=== PATIENT | male | born 1970 | race Hispanic/Latino ===

== ENCOUNTER 2021-06-21 18:32 | Inpatient (IN) | payer OTHER ==
[2021-06-21] MEDS ORDERED: MORPHINE 4 MG/1 ML INJ IV ONE ×2 (21:17→22:13)
[2021-06-21] MEDS ORDERED: NITROGLYCERIN 0.4 MG TAB SUBL SL ONE (21:17)
[2021-06-21] MEDS ORDERED: ASPIRIN 325 MG TAB PO ONE (21:17)
--- NOTE | 2021-06-21 21:18 | Emergency Department Report ---
ED Chest Pain HPI - General Chief Complaint: Chest Pain Stated Complaint: CHEST PAIN PUI?: No Time Seen by Provider: 06/21/21 21:06 Source: patient, RN notes reviewed Mode of arrival: Ambulatory Limitations: No Limitations - History of Present Illness Initial Comments: This patient is a pleasant and cooperative 51-year-old gentleman who currently lives in [place], but works here in [place], who travels back and forth between [place] and [place]. His past medical history includes ischemic heart disease with multiple stents, and hypertension. He takes aspirin, Brilinta, and Ranexa. He presents to the ER today with complaints of nontraumatic posterior shoulder blade pain, that radiates down his left upper extremity. He endorses moderate discomfort. He states "it feels just like my prior heart attack." Denies heada ronny, midline neck pain, abdominal pain, vomiting, diaphoresis. Denies leg pain or leg swelling. Reports multiple trips back and forth between [place] and [place]. Last cardiac catheterization was 2 years ago. Has not had a recent cardiac stress test. Reports compliance with his medications MD Complaint: chest pain -: Gradual, days(s) Onset: during rest Pain Location: other Pain Radiation: LUE Severity: moderate Severity scale (0 -10): 7 Quality: aching Consistency: intermittent Improves With: nothing Worsens With: nothing Treatments Prior to Arrival: aspirin Aspirin use within the Past 7 Days: (1) Yes - Related Data On Oral Contraceptives: No Home Medications Medication Instructions Recorded Confirmed Last Taken Aspirin [Claiborne Aspirin EC] 81 mg PO DAILY 06/22/21 06/22/21 1 Day Ago ~06/21/21 81 mg Escitalopram Oxalate [Lexapro] 20 mg PO DAILY 06/22/21 06/22/21 1 Day Ago ~06/21/21 20 mg Lipitor 80 mg PO DAILY 06/22/21 06/22/21 1 Day Ago ~06/21/21 80 mg Ranexa 500 mg PO BID 06/22/21 06/22/21 1 Day Ago ~06/21/21 500 Ticagrelor (Nf) [Brilinta (Nf)] 90 mg PO BID 06/22/21 06/22/21 1 Day Ago ~06/21/21 90 mg Valsartan [Diovan] 40 mg PO DAILY 06/22/21 06/22/21 1 Day Ago ~06/21/21 40 mg carvediloL [Coreg] 3.125 mg PO DAILY 06/22/21 06/22/21 1 Day Ago ~06/21/21 3.125 Allergies Allergy/AdvReac Type Severity Reaction Status Date / Time acetaminophen [From Percocet] Allergy Itching Verified 06/21/21 18:37 oxycodone [From Percocet] Allergy Itching Verified 06/21/21 18:37 Heart Score - HEART Score History: Moderately suspicious EKG: Non-specific Age: 45-65 Risk factors: > 3 risk factors or hx of atherosclerotic disease Troponin: < normal limit HEART Score: 5 - EKG Read Time Time EKG Completed: 18:43 EKG Read Time: 18:43 - Critical Actions Critical Actions: 4-6 pts:12-16.6% risk of adverse cardiac event. Should be admitted ED Review of Systems ROS: Stated complaint: CHEST PAIN Other details as noted in HPI Constitutional: denies: diaphoresis Eyes: denies: eye discharge ENT: denies: epistaxis Respiratory: denies: cough Cardiovascular: chest pain Gastrointestinal: denies: abdominal pain, vomiting Musculoskeletal: back pain Neurological: denies: weakness Hematological/Lymphatic: denies: easy bleeding ED Past Medical Hx - Past Medical History Hx Heart Attack/AMI: Yes (2020) Hx Diabetes: Yes (type 2) - Surgical History Hx Coronary Stent: Yes - Medications Home Medications: Home Medications Medication Instructions Recorded Confirmed Last Taken Type Aspirin [Claiborne Aspirin EC] 81 mg PO DAILY 06/22/21 06/22/21 1 Day Ago History ~06/21/21 81 mg Escitalopram Oxalate [Lexapro] 20 mg PO DAILY 06/22/21 06/22/21 1 Day Ago History ~06/21/21 20 mg Lipitor 80 mg PO DAILY 06/22/21 06/22/21 1 Day Ago History ~06/21/21 80 mg Ranexa 500 mg PO BID 06/22/21 06/22/21 1 Day Ago History ~06/21/21 500 Ticagrelor (Nf) [Brilinta (Nf)] 90 mg PO BID 06/22/21 06/22/21 1 Day Ago History ~06/21/21 90 mg Valsartan [Diovan] 40 mg PO DAILY 06/22/21 06/22/21 1 Day Ago History ~06/21/21 40 mg carvediloL [Coreg] 3.125 mg PO DAILY 06/22/21 06/22/21 1 Day Ago History ~06/21/21 3.125 ED Physical Exam - General Limitations: No Limitations General appearance: alert, in no apparent distress, obese - Head Head exam: Present: atraumatic, normocephalic - Eye Eye exam: Present: normal appearance, EOMI. Absent: nystagmus - ENT ENT exam: Present: normal exam, normal orophraynx, mucous membranes moist, normal external ear exam - Neck Neck exam: Present: normal inspection, full ROM. Absent: tenderness, me ningismus - Respiratory Respiratory exam: Present: normal lung sounds bilaterally. Absent: respiratory distress, wheezes, rales, rhonchi, stridor - Cardiovascular Cardiovascular Exam: Present: regular rate, normal rhythm, normal heart sounds. Absent: bradycardia, tachycardia, irregular rhythm, systolic murmur, diastolic murmur, rubs, gallop - GI/Abdominal GI/Abdominal exam: Present: soft. Absent: distended, tenderness, guarding, rebound, rigid, pulsatile mass - Rectal Rectal exam: Present: deferred - Extremities Exam Extremities exam: Present: normal inspection, full ROM, pedal edema (1+ edema in the bilateral lower extremity), other (2+ pulses noted in the bilateral upper and lower extremities. There is no palpable cord. negative Homans sign. Muscular compartments are soft. The pelvis is stable.). Absent: calf tenderness - Back Exam Back exam: Present: normal inspection. Absent: tenderness, CVA tenderness (R), CVA tenderness (L), paraspinal tenderness, vertebral tenderness - Neurological Exam Neurological exam: Present: alert, oriented X3, other (No facial droop. Tongue midline. Extraocular movements intact bilaterally. Facial sensation intact to light touch in V1, V2, V3 distribution bilaterally. 5 and a 5 strength in 4 extremities. Sensation intact to light touch in 4 extremities.). Absent: motor sensory deficit - Psychiatric Psychiatric exam: Present: normal affect, normal mood - Skin Skin exam: Present: warm, dry, intact, normal color. Absent: rash ED Course Vital Signs 06/21/21 06/21/21 06/21/21 18:36 20:55 21:00 Temperature 97.9 F Pulse Rate 107 H Respiratory 16 Rate Blood Pressure 133/86 Blood Pressure 142/85 [Left] O2 Sat by Pulse 98 94 96 Oximetry 06/21/21 06/21/21 06/21/21 21:16 21:30 21:46 Temperature Pulse Rate 95 H Respiratory Rate Blood Pressure 133/86 133/84 133/84 Blood Pressure [Left] O2 Sat by Pulse 96 95 96 Oximetry 06/21/21 06/21/21 06/21/21 22:00 22:16 22:30 Temperature Pulse Rate Respiratory Rate Blood Pressure 133/84 133/84 133/84 Blood Pressure [Left] O2 Sat by Pulse 95 95 96 Oximetry 06/21/21 06/21/21 06/21/21 22:46 23:00 23:08 Temperature Pulse Rate Respiratory Rate Blood Pressure 133/84 133/84 133/84 Blood Pressure [Left] O2 Sat by Pulse 95 96 95 Oximetry 06/21/21 06/21/21 06/21/21 23:10 23:20 23:30 Temperature Pulse Rate Respiratory Rate Blood Pressure 133/84 133/84 133/84 Blood Pressure [Left] O2 Sat by Pulse 94 94 95 Oximetry 06/21/21 06/21/21 06/22/21 23:40 23:50 00:00 Temperature Pulse Rate Respiratory Rate Blood Pressure 121/74 121/74 122/66 Blood Pressure [Left] O2 Sat by Pulse 96 95 95 Oximetry 06/22/21 00:26 Temperature Pulse Rate 72 Respiratory Rate Blood Pressure 93/46 Blood Pressure [Left] O2 Sat by Pulse 96 Oximetry - Reevaluation(s) Reevaluation #1: 06/21/21 21:39 Differential diagnosis, including but not limited to: GERD, gastritis, hiatal hernia, pneumonia, costochondritis, acute coronary syndrome, pulmonary embolism Assessment and plan: 51-year-old gentleman, with multiple trips back and forth between [facility] and [place], resolved tachycardia, who is not currently tachypneic or hypoxic, presenting to the ER today with symptoms concerning for atypical presentation of acute coronary syndrome. Place patient on youth nutritional monitor. Obtain appropriate laboratory studies, EKG, chest x-ray. Treat symptoms aggressively. Send D-dimer. Reassess after initi al data points. Have recommended admission to the medical service for a cardiac risk stratification, presuming no alternative diagnosis is elicited while here in the emergency room. The patient is agreeable to this plan of care. Reassess. 06/21/21 22:17 Laboratory studies reviewed and appreciated. Chest x-ray unremarkable. Troponin negative x1. Patient felt somewhat improved after nitroglycerin and morphine, but is still having some discomfort. He is requesting repeat dose of analgesia. Have reordered medication. D-dimer pending. Patient updated on laboratory studies and x-ray the chest. Case was discussed with the hospital physician who request call back once all diagnostics have resulted. 06/21/21 22:19 Dr Radha Post to admit to IMS he will follow up on the d dimer PATRICK score - Patrick Score Age > 65: (0) No Aspirin use within the Past 7 Days: (1) Yes 3 or more CAD Risk Factors: (1) Yes 2 or more Angina events in past 24 hrs: (1) Yes ST Deviation Greater than 0.5mm: (0) No ED Medical Decision Making - Lab Data Result diagrams: 06/22/21 05:09 06/22/21 05:09 Vital Signs 06/21/21 06/21/21 18:36 21:30 Temperature 97.9 F Pulse Rate 107 H 95 H Respiratory 16 Rate Blood Pressure 133/84 Blood Pressure 142/85 [Left] O2 Sat by Pulse 98 Oximetry Lab Results 06/21/21 06/21/21 Range/Units 21:34 21:34 WBC 8.8 (4.5-11.0) K/mm3 RBC 4.25 (3.65-5.03) M/mm3 Hgb 12.5 (11.8-15.2) gm/dl Hct 37.5 (35.5-45.6) % MCV 88 (84-94) fl MCH 29 (28-32) pg MCHC 33 (32-34) % RDW 15.7 H (13.2-15.2) % Plt Count 231 (140-440) K/mm3 Lymph % (Auto) 27.2 (13.4-35.0) % [place] % (Auto) 4.0 (0.0-7.3) % Eos % (Auto) 7.2 H (0.0-4.3) % Baso % (Auto) 0.6 (0.0-1.8) % Lymph # (Auto) 2.4 (1.2-5.4) K/mm3 [place] # (Auto) 0.4 (0.0-0.8) K/mm3 Eos # (Auto) 0.6 H (0.0-0.4) K/mm3 Baso # (Auto) 0.0 (0.0-0.1) K/mm3 Seg Neutrophils % 61.0 (40.0-70.0) % Seg Neutrophils # 5.4 (1.8-7.7) K/mm3 Sodium 137 (137-145) mmol/L Potassium 4.0 (3.6-5.0) mmol/L Chloride 103.7 (98-107) mmol/L Carbon Dioxide 21 L (22-30) mmol/L Anion Gap 16 mmol/L BUN 10 (9-20) mg/dL Creatinine 0.9 (0.8-1.3) mg/dL Estimated GFR > 60 ml/min BUN/Creatinine Ratio 11 % Glucose 206 H (75-100) mg/dL Calcium 8.6 (8.4-10.2) mg/dL Total Bilirubin 0.20 (0.1-1.2) mg/dL AST 14 (5-40) units/L ALT 12 (7-56) units/L Alkaline Phosphatase 120 (35-129) units/L Troponin T < 0.010 (0.00-0.029) ng/mL Total Protein 6.8 (6.3-8.2) g/dL Albumin 4.3 (3.9-5) g/dL Albumin/Globulin Ratio 1.7 % - EKG Data -: EKG Interpreted by N[facility] EKG shows normal: sinus rhythm Rate: normal - EKG Data When compared to previous EKG there are: previous EKG unavailable 06/21/21 21:39 EKG #1 is interpreted at 18: 43 Sinus rhythm, 99 bpm. Left axis deviation, left anterior fascicular block, left ventricular hypertrophy, normal P wave axis. Normal EKG. Not a STEMI. No prior for comparison. - Radiology Data Radiology results: pending, report reviewed, image reviewed CHEST 1 VIEW 06/21/2021 8:45 PM INDICATION / CLINICAL INFORMATION: Chest Pain. COMPARISON: None available. FINDINGS: SUPPORT DEVICES: None. HEART / MEDIASTINUM: No significant abnormality. LUNGS / PLEURA: No acute airspace disease. Mild bibasilar atelectasis. No pneumothorax. ADDITIONAL FINDINGS: Thoracic spine stimulating leads project over the mid to lower thoracic spine. IMPRESSION: 1. No acute findings. Signer Name: Virginia Cabrera MD Signed: 06/21/2021 8:50 PM Workstation Name: [id number] Critical Care Time: Yes Critical care time in (mins) excluding proc time.: 35 Critical care attestation.: If time is entered above; I have spent that time in minutes in the direct care of this critically ill patient, excluding procedure time. ED Disposition Clinical Impression: Acute chest pain Disposition: 09 ADMITTED INPATIENT Is pt being admited?: Yes Does the pt Need Aspirin: No Condition: Good
[2021-06-21 21:52] LABS: Basophils % (Auto) 0.6 % (0.0-1.8); Eosinophils # (Auto) 0.6 K/mm3 (0.0-0.4); Eosinophils % (Auto) 7.2 % (0.0-4.3); Hematocrit 37.5 % (35.5-45.6); Hemoglobin 12.5 gm/dl (11.8-15.2); Lymphocytes # (Auto) 2.4 K/mm3 (1.2-5.4); Lymphocytes % (Auto) 27.2 % (13.4-35.0); Mean Corpuscular HGB Conc 33 % (32-34); Mean Corpuscular Volume 88 fl (84-94); Monocytes # (Auto) 0.4 K/mm3 (0.0-0.8); Platelet Count 231 K/mm3 (140-440); Red Blood Count 4.25 M/mm3 (3.65-5.03); Red Cell Distribution Width 15.7 % (13.2-15.2)
--- NOTE | 2021-06-21 21:54 | XRay Report ---
CHEST 1 VIEW 06/21/2021 8:45 PM INDICATION / CLINICAL INFORMATION: Chest Pain. COMPARISON: None available. FINDINGS: SUPPORT DEVICES: None. HEART / MEDIASTINUM: No significant abnormality. LUNGS / PLEURA: No acute airspace disease. Mild bibasilar atelectasis. No pneumothorax. ADDITIONAL FINDINGS: Thoracic spine stimulating leads project over the mid to lower thoracic spine. IMPRESSION: 1. No acute findings. Signer Name: Virginia Cabrera MD Signed: 06/21/2021 9:50 PM Workstation Name: [id number]
[2021-06-21 22:08] LABS: Alanine Aminotransferase 12 units/L (7-56); Albumin 4.3 g/dL (3.9-5); BUN/Creatinine Ratio 11; Blood Urea Nitrogen 10 mg/dL (9-20); Calcium 8.6 mg/dL (8.4-10.2); Hemolysis Index 7
--- NOTE | 2021-06-21 22:20 | History and Physical Report ---
History of Present Illness Date of examination: 06/21/21 Date of admission: 06/21/2021 Chief complaint: Chest Pain History of present illness: 51-year-old male with known history of coronary artery disease with stent placement in the past, diabetes mellitus presenting to the emergency room today complaining of left shoulder pain. Patient lives in [place] and visiting [place] [id number]. Indicates that pain felt like when he had a heart attack requiring stent placement in the past. He denies any diaphoresis, no shortness of breath, no nausea vomiting, no headache or dizziness. There is no known relieving or exacerbating factor. Patient has been compliant with his medications which includes aspirin, Brilinta and Ranexa. Work-up in the emergency room today, chest x-ray shows no acute findings. Labs however shows elevated D-dimer of 1243. EKG shows no acute findings. Other labs are essentially unremarkable. Past History Past Medical History: acute MD, CAD, diabetes, hypertension Past Surgical History: PTCA Social history: no significant social history Family history: no significant family history Medications and Allergies Allergies Allergy/AdvReac Type Severity Reaction Status Date / Time acetaminophen [From Percocet] Allergy Itching Verified 06/21/21 18:37 oxycodone [From Percocet] Allergy Itching Verified 06/21/21 18:37 Review of Systems Constitutional: no fever, no chills Ears, nose, mouth and throat: no nasal congestion, no sore throat Cardiovascular: chest pain, no palpitations Respiratory: no cough, no shortness of breath Gastrointestinal: no abdominal pain, no nausea, no vomiting, no diarrhea Genitourinary Male: no dysuria, no hematuria, no nocturia Musculoskeletal: no neck pain, no low back pain Integumentary: no rash, no pruritis Neurological: no headaches, no confusion Psychiatric: no anxiety, no depression Endocrine: no polyphagia, no polydipsia, no polyuria, no nocturia Exam - Constitutional Vitals: Temp Pulse Resp BP Pulse Ox 97.9 F 95 H 16 133/84 98 06/21/21 18:36 06/21/21 21:30 06/21/21 18:36 06/21/21 21:30 06/21/21 18:36 General appearance: Present: no acute distress, well-nourished, obese - EENT Eyes: Present: PERRL, EOM intact. Absent: scleral icterus ENT: hearing intact, clear oral mucosa, dentition normal - Neck Neck: Present: supple, normal ROM - Respiratory Respiratory effort: normal Respiratory: bilateral: CTA - Cardiovascular Rhythm: regular Heart Sounds: Present: S1 & S2. Absent: systolic murmur, diastolic murmur, rub, click - Extremities Extremities: no ischemia, pulses intact, pulses symmetrical, No edema, normal temperature, normal color, Full ROM Peripheral Pulses: within normal limits - Abdominal General gastrointestinal: Present: soft, non-tender, non-distended, normal bowel sounds. Absent: mass - Integumentary Integumentary: Present: clear, warm, dry, normal turgor. Absent: rash - Musculoskeletal Musculoskeletal: strength equal bilaterally - Psychiatric Psychiatric: appropriate mood/affect, intact judgment & insight, memory intact, cooperative - Neurologic Neurologic: CNII-XII intact, no focal deficits, moves all extremities HEART Score - HEART Score History: Moderately suspicious EKG: Non-specific Age: 45-65 Risk factors: > 3 risk factors or hx of atherosclerotic disease Troponin: Troponin T < 0.010 ng/mL (0.00-0.029) 06/21/21 21:34 Troponin: < normal limit HEART Score: 5 - Critical Actions Critical Actions: 4-6 pts:12-16.6% risk of adverse cardiac event. Should be admitted Results - Labs CBC & Chem 7: 06/21/21 21:34 06/21/21 21:34 Labs: Abnormal lab results 06/21/21 06/21/21 Range/Units 21:34 21:34 RDW 15.7 H (13.2-15.2) % Eos % (Auto) 7.2 H (0.0-4.3) % Eos # (Auto) 0.6 H (0.0-0.4) K/mm3 Carbon Dioxide 21 L (22-30) mmol/L Glucose 206 H (75-100) mg/dL Assessment and Plan - Patient Problems (1) Acute chest pain Current Visit: Yes Status: Acute Plan to address problem: Patient admitted and placed on telemetry. We will check serial cardiac enzymes. Patient placed on daily aspirin, sublingual nitroglycerin and IV morphine as needed for chest pain. Consult placed to cardiology for evaluation. (2) CAD (coronary artery disease) Current Visit: Yes Status: Acute Plan to address problem: Patient has had stent placed in the past. Will await for cardiology evaluation and recommendations. (3) Diabetes mellitus Current Visit: Yes Status: Acute Plan to address problem: Placed on sliding scale insulin. Monitor Accu-Cheks closely. (4) Elevated d-dimer Current Visit: Yes Status: Acute Plan to address problem: We will check a CT angiogram of the chest to rule out pulmonary embolism. (5) DVT prophylaxis Current Visit: Yes Status: Acute Plan to address problem: Patient placed on subcutaneous heparin. (6) Full code status Current Visit: Yes Status: Acute Plan to address problem: Patient is full code.
[2021-06-21] MEDS ORDERED: traMADol 50 MG TAB PO PRN (22:23)
[2021-06-21] MEDS ORDERED: MORPHINE 4 MG/1 ML INJ IV PRN ×2 (22:23)
[2021-06-21] MEDS ORDERED: DEXTROSE 50% IN WATER (25GM) 50 ML SYRINGE IV PRN (22:23)
[2021-06-21] MEDS ORDERED: ONDANSETRON 4 MG/2 ML INJ IV PRN (22:23)
[2021-06-21] MEDS ORDERED: MAGNESIUM HYDROXIDE (MOM) ORAL LIQD UDC PO PRN (22:23)
[2021-06-21] MEDS ORDERED: ACETAMINOPHEN 325 MG TAB PO PRN ×2 (22:23)
[2021-06-22] MEDS: MORPHINE 2 MG/1 ML INJ IV PRN ×2 (02:07→11:29)
--- NOTE | 2021-06-22 02:07 | Cat Scan Report ---
CTA CHEST WITH CONTRAST INDICATION / CLINICAL INFORMATION: Chest pain, elevated D-dimer. possible P.E.. TECHNIQUE: Axial CT images were obtained through the chest after injection of 100 cc Omnipaque 350 IV contrast. 3 plane MIP and/or 3D reconstructions were produced. All CT scans at this location are per formed using CT dose reduction for ALARA by means of automated exposure control. COMPARISON: One view of the chest from 06/21/2021. FINDINGS: PULMONARY EMBOLUS: None. THORACIC AORTA: No significant abnormality. HEART: No significant abnormality. CORONARY ARTERY CALCIFICATION: Present -- Mild. Multiple previously placed coronary artery stents are noted. MEDIASTINUM / ALPHONSO: No significant abnormality. PLEURA: No pleural effusion. No pneumothorax. LUNGS: There is probable bilateral atelectasis. No suspicious area of consolidation. No suspicious no dule or mass. ADDITIONAL FINDINGS: None. UPPER ABDOMEN: No acute findings. SKELETAL STRUCTURES: No significant osseous abnormality. There is expected positioning of the thoraci c spine stimulating device. IMPRESSION: 1. No CT evidence for pulmonary embolism. 2. No acute findings. 3. Additional findings as above. Signer Name: William Dee MD Signed: 06/22/2021 2:03 AM Workstation Name: [id number]
[2021-06-22 05:55] LABS: Basophils % (Auto) 0.7 % (0.0-1.8); Eosinophils # (Auto) 0.4 K/mm3 (0.0-0.4); Eosinophils % (Auto) 6.4 % (0.0-4.3); Hematocrit 35.6 % (35.5-45.6); Hemoglobin 11.8 gm/dl (11.8-15.2); Lymphocytes # (Auto) 2.2 K/mm3 (1.2-5.4); Lymphocytes % (Auto) 38.9 % (13.4-35.0); Mean Corpuscular HGB Conc 33 % (32-34); Mean Corpuscular Volume 88 fl (84-94); Monocytes # (Auto) 0.2 K/mm3 (0.0-0.8); Monocytes % (Auto) 3.8 % (0.0-7.3); Platelet Count 216 K/mm3 (140-440); Red Blood Count 4.05 M/mm3 (3.65-5.03); Red Cell Distribution Width 15.8 % (13.2-15.2)
[2021-06-22] MEDS ORDERED: HEPARIN 5,000 UNIT/1 ML VIAL SUB-Q SCH (06:00)
[2021-06-22 06:13] LABS: Blood Urea Nitrogen 9 mg/dL (9-20); Calcium 8.2 mg/dL (8.4-10.2); Hemolysis Index 4
[2021-06-22 06:17] LABS: BUN/Creatinine Ratio 13
[2021-06-22] MEDS: INSULIN LISPRO 100 UNIT/ML SUB-Q SCH ×4 (07:53→22:02)
[2021-06-22] MEDS ORDERED: REGADENOSON 0.4 MG/5 ML INJ IV ONE (08:35)
[2021-06-22] MEDS ORDERED: ASPIRIN EC 325 MG TAB PO SCH (10:00)
--- NOTE | 2021-06-22 10:33 | Consultation ---
History of Present Illness Consult date: 06/22/21 Consult reason: chest pain History of present illness: Patient is a 51-year-old man who presented to the hospital with chest pain. He has a history of coronary artery disease, 2 years ago suffered a myocardial infarction and underwent coronary stenting while in [place]. 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 He is still compliant with dual antiplatelet therapy with baby aspirin and Brilinta. His current chest pain is located left upper chest, with radiation down his left arm and to his neck. His pain was nonexertional, but he states it was reminiscent of his prior angina 2 years ago. There is no shortness of breath, no palpitations, no edema or syncope. Work-up so far in the hospital, EKG is sinus rhythm with early repolarization J- point elevation, but no acute ischemia or infarction. Serial troponin levels were negative x3. Chest x-ray was normal-sized cardiac silhouette and clear lungs. Echocardiogram preliminary findings showed normal left ventricular systolic function with ejection fraction >55%. He underwent a Lexiscan thallium stress test today, the results pending. Past History Past Medical History: acute NC, CAD, diabetes, hypertension, other (Tobacco abuse, still smokes) Past Surgical History: PTCA Social history: no significant social history Family history: no significant family history Medications and Allergies Allergies Allergy/AdvReac Type Severity Reaction Status Date / Time acetaminophen [From Percocet] Allergy Itching Verified 06/21/21 18:37 oxycodone [From Percocet] Allergy Itching Verified 06/21/21 18:37 Home Medications Medication Instructions Recorded Confirmed Last Taken Type Aspirin [[place] Aspirin EC] 81 mg PO DAILY 06/22/21 06/22/21 1 Day Ago History ~06/21/21 81 mg Escitalopram Oxalate [Lexapro] 20 mg PO DAILY 06/22/21 06/22/21 1 Day Ago History ~06/21/21 20 mg Lipitor 80 mg PO DAILY 06/22/21 06/22/21 1 Day Ago History ~06/21/21 80 mg Ranexa 500 mg PO BID 06/22/21 06/22/21 1 Day Ago History ~06/21/21 500 Ticagrelor (Nf) [Brilinta (Nf)] 90 mg PO BID 06/22/21 06/22/21 1 Day Ago History ~06/21/21 90 mg Valsartan [Diovan] 40 mg PO DAILY 06/22/21 06/22/21 1 Day Ago History ~06/21/21 40 mg carvediloL [Coreg] 3.125 mg PO DAILY 06/22/21 06/22/21 1 Day Ago History ~06/21/21 3.125 Active Meds: Active Medications Acetaminophen (Acetaminophen 325 Mg Tab) 650 mg PO Q4H PRN PRN Reason: Pain MILD(1-3)/Fever >100.5/CANALES Aspirin (Aspirin Ec 325 Mg Tab) 325 mg PO QDAY ANNA Dextrose (Dextrose 50% In Water (25gm) 50 Ml Syringe) 50 ml IV Q30MIN PRN; Protocol PRN Reason: Hypoglycemia Heparin Sodium (Porcine) (Heparin 5,000 Unit/1 Ml Vial) 5,000 unit SUB-Q Q8HR [facility] Last Admin: 06/22/21 06:59 Dose: 5,000 unit Insulin Human Lispro (Insulin Lispro 100 Unit/Ml) 0 unit SUB-Q ACHS [facility]; Protocol Last Admin: 06/22/21 07:53 Dose: Not Given Magnesium Hydroxide (Magnesium Hydroxide (Mom) Oral Liqd Udc) 30 ml PO Q4H PRN PRN Reason: Constipation Morphine Sulfate (Morphine 2 Mg/1 Ml Inj) 2 mg IV Q4H PRN PRN Reason: Pain, Moderate (4-6) Last Admin: 06/22/21 02:07 Dose: 2 mg Morphine Sulfate (Morphine 4 Mg/1 Ml Inj) 4 mg IV Q4H PRN PRN Reason: Pain , Severe (7-10) Last Admin: 06/22/21 00:34 Dose: 4 mg Morphine Sulfate (Morphine 4 Mg/1 Ml Inj) 2 mg IV Q5MIN PRN PRN Reason: Chest Pain unrelieved by NTG Last Admin: 06/22/21 05:34 Dose: 2 mg Ondansetron HCl (Ondansetron 4 Mg/2 Ml Inj) 4 mg IV Q8H PRN PRN Reason: Nausea And Vomiting Sodium Chloride (Sodium Chloride 0.9% 10 Ml Flush Syringe) 10 ml IV BID ANNA Sodium Chloride (Sodium Chloride 0.9% 10 Ml Flush Syringe) 10 ml IV PRN PRN PRN Reason: LINE FLUSH Tramadol HCl (Tramadol 50 Mg Tab) 50 mg PO Q6H PRN PRN Reason: Pain, Moderate (4-6) Review of Systems Cardiovascular: chest pain, no orthopnea, no palpitations, no rapid/irregular heart beat, no edema, no syncope, no lightheadedness, no shortness of breath Physical Examination Vital Signs Temp Pulse Resp BP Pulse Ox 97.9 F 107 H 16 142/85 98 06/21/21 18:36 06/21/21 18:36 06/21/21 18:36 06/21/21 18:36 06/21/21 18:36 General appearance: no acute distress HEENT: Positive: PERRL Neck: Positive: neck supple Cardiac: Positive: Reg Rate and Rhythm Lungs: Positive: Decreased Breath Sounds Neuro: Positive: Grossly Intact Abdomen: Positive: Soft Male genitourinary: Positive: deferred Skin: Positive: Clear Extremities: Absent: edema Results 06/22/21 05:09 06/22/21 05:09 Cardiac Enzymes 06/21/21 Range/Units 21:34 AST 14 (5-40) units/L CBC 06/21/21 06/22/21 Range/Units 21:34 05:09 WBC 8.8 5.6 (4.5-11.0) K/mm3 RBC 4.25 4.05 (3.65-5.03) M/mm3 Hgb 12.5 11.8 (11.8-15.2) gm/dl Hct 37.5 35.6 (35.5-45.6) % Plt Count 231 216 (140-440) K/mm3 Lymph # (Auto) 2.4 2.2 (1.2-5.4) K/mm3 [place] # (Auto) 0.4 0.2 (0.0-0.8) K/mm3 Eos # (Auto) 0.6 H 0.4 (0.0-0.4) K/mm3 Baso # (Auto) 0.0 0.0 (0.0-0.1) K/mm3 Comprehensive Metabolic Panel 06/21/21 06/22/21 Range/Units 21:34 05:09 Sodium 137 140 (137-145) mmol/L Potassium 4.0 4.2 (3.6-5.0) mmol/L Chloride 103.7 104.8 (98-107) mmol/L Carbon Dioxide 21 L 24 (22-30) mmol/L BUN 10 9 (9-20) mg/dL Creatinine 0.9 0.7 L (0.8-1.3) mg/dL Glucose 206 H 97 (75-100) mg/dL Calcium 8.6 8.2 L (8.4-10.2) mg/dL AST 14 (5-40) units/L ALT 12 (7-56) units/L Alkaline Phosphatase 120 (35-129) units/L Total Protein 6.8 (6.3-8.2) g/dL Albumin 4.3 (3.9-5) g/dL EKG interpretations - Telemetry EKG Rhythm: Sinus Rhythm (With early repolarization J-point elevation, no acute ischemia or infarction) Assessment and Plan - Patient Problems (1) Chest pain Current Visit: Yes Status: Acute Plan to address problem: 51-year-old man with a history of coronary artery disease, myocardial infarction and stent implantation 2 years ago, compliant with medical therapy including dual oral antiplatelet therapy. He presents with atypical chest pain, but states that it is reminiscent of his prior angina. ECG, chest x-ray, troponin levels and echocardiogram showed benign findings. A Lexiscan thallium stress test has been completed, results are pending. Further management will depend on clinical course.
[2021-06-22] MEDS ORDERED: KETOROLAC 30 MG/1 ML INJ IV PRN (12:30)
[2021-06-22] MEDS ORDERED: NITROGLYCERIN 0.4 MG TAB SUBL SL PRN (13:00)
--- NOTE | 2021-06-22 13:45 | Nuclear Medicine Report ---
APPROVED REPORT Exam: Nuclear Stress Test Indication: Chest pain [facility] [place] [facility] Ht: 5 ft 11 in Wt: 289 lbs BSA: 2.47 m2 HR: 63 bpmBP: 117/78 mmHgBMI: 40.30 Rhythm: SINUS RHYTHM , CANNOT R/O INFERIOR INFARCT AGE INDETERMNED WITH POSTERIOR EXTENSION Stress Test Details Stress Test: Pharmacologic stress testing performed using 0.4 mg of regadenoson per 5 mL given IV over 10 seconds. Reason for pharmacologic stress test: physical limitation. HR Resting HR: 63 bpm Max HR Achieved: 80 bpm Max Heart Rate (APMHR): 168 bpm Target HR (85% APMHR): 142 bpm % of APMHR: 47 Recovery HR: 70 bpm BP Resting BP: 117/78 mmHg Max BP: 141/75 mmHg Recovery BP: 135/81 mmHg ECG Resting ECG: SINUS RHYTHM Stress ECG: Sinus Rhythm ST Change: None Arrhythmia: None Recovery ECG: Sinus Rhythm Recovery ST Change: None Recovery Arrhythmia: None Clinical Reason for Termination: Completed protocol Stress Symptoms: None Stress ECG Conclusion No chest pain, no ST changes of ischemia with pharmacologic stress, myocardial perfusion images are pending NM EXAM: Myocardial Perfusion REST/STRESS Imaging Protocol: Rest Tc-99m/Stress Tc-99m 1 day Resting Data Rest SPECT myocardial perfusion imaging was performed in supine position 45 minutes following the intravenous injection of 10 mCi of Tc-99m Myoview. Time of rest injection: 0740 Date: 06/22/2021 Pharmacologic Stress Pharmacologic stress test was performed by injecting Regadenoson 0.4 mg IV push followed by the intravenous injection of 28 mCi of Tc-99m Myoview. Time of stress injection: 09:55:45 Date: 06/22/2021 Gated Stress SPECT was performed 30 minutes after stress injection. The images were gated to evaluate regional wall motion and calculate left ventricular ejection fraction. Study Data TID = 1.15. Perfusion Wall Motion Well-preserved left ventricular systolic function, ejection fraction calculated 64%. Nuclear Conclusion ECG Findings: negative for ischemia Clinical Findings: negative for ischemia Nuclear Findings: positive for ischemia Left Ventricular Function: normal Risk Study: moderate Abnormal study with evidence of a prior inferior wall infarct with mild degree of lucero-infarct ischemia. Well-preserved left ventricular systolic function, ejection fraction 64%. Clinical correlation is recommended. Conclusion No chest pain, no ST changes of ischemia with pharmacologic stress, myocardial perfusion images are pending
--- NOTE | 2021-06-22 13:53 | Event Note ---
Date: 06/22/21 Lexiscan thallium stress test was abnormal, showed a moderate sized predominantly fixed inferior defect but with mild degree of reversible lucero- infarct ischemia. We will order a cardiac catheterization tomorrow morning, risks and benefits discussed with the patient who consents to proceed.
[2021-06-22] MEDS ORDERED: SODIUM CHLORIDE 0.9% 500 ML 500 ML IV SCH (14:00)
--- NOTE | 2021-06-22 14:29 | Progress Note ---
Hospitalist Physical - Constitutional Vitals: Temp Pulse Resp BP Pulse Ox 97.6 F 72 18 132/80 97 06/22/21 12:53 06/22/21 09:42 06/22/21 12:53 06/22/21 12:53 06/22/21 03:09 General appearance: Present: no acute distress HEART Score - HEART Score EKG: Non-specific Age: 45-65 Risk factors: > 3 risk factors or hx of atherosclerotic disease Troponin: Troponin T < 0.010 ng/mL (0.00-0.029) 06/22/21 05:09 Troponin: < normal limit - Critical Actions Critical Actions: 4-6 pts:12-16.6% risk of adverse cardiac event. Should be admitted Results - Labs CBC & Chem 7: 06/22/21 05:09 06/22/21 05:09 Labs: Laboratory Last Values WBC 5.6 K/mm3 (4.5-11.0) 06/22/21 05:09 RBC 4.05 M/mm3 (3.65-5.03) 06/22/21 05:09 Hgb 11.8 gm/dl (11.8-15.2) 06/22/21 05:09 Hct 35.6 % (35.5-45.6) 06/22/21 05:09 MCV 88 fl (84-94) 06/22/21 05:09 MCH 29 pg (28-32) 06/22/21 05:09 MCHC 33 % (32-34) 06/22/21 05:09 RDW 15.8 % (13.2-15.2) H 06/22/21 05:09 Plt Count 216 K/mm3 (140-440) 06/22/21 05:09 Lymph % (Auto) 38.9 % (13.4-35.0) H 06/22/21 05:09 [place] % (Auto) 3.8 % (0.0-7.3) 06/22/21 05:09 Eos % (Auto) 6.4 % (0.0-4.3) H 06/22/21 05:09 Baso % (Auto) 0.7 % (0.0-1.8) 06/22/21 05:09 Lymph # (Auto) 2.2 K/mm3 (1.2-5.4) 06/22/21 05:09 [place] # (Auto) 0.2 K/mm3 (0.0-0.8) 06/22/21 05:09 Eos # (Auto) 0.4 K/mm3 (0.0-0.4) 06/22/21 05:09 Baso # (Auto) 0.0 K/mm3 (0.0-0.1) 06/22/21 05:09 Seg Neutrophils % 50.2 % (40.0-70.0) 06/22/21 05:09 Seg Neutrophils # 2.8 K/mm3 (1.8-7.7) 06/22/21 05:09 D-Dimer 1243.27 ng/mlDDU (0-234) H 06/21/21 21:34 Sodium 140 mmol/L (137-145) 06/22/21 05:09 Potassium 4.2 mmol/L (3.6-5.0) 06/22/21 05:09 Chloride 104.8 mmol/L (98-107) 06/22/21 05:09 Carbon Dioxide 24 mmol/L (22-30) 06/22/21 05:09 Anion Gap 15 mmol/L 06/22/21 05:09 BUN 9 mg/dL (9-20) 06/22/21 05:09 Creatinine 0.7 mg/dL (0.8-1.3) L 06/22/21 05:09 Estimated GFR > 60 ml/min 06/22/21 05:09 BUN/Creatinine Ratio 13 % 06/22/21 05:09 Glucose 97 mg/dL (75-100) 06/22/21 05:09 POC Glucose 126 mg/dL (70-105) H 06/22/21 11:26 Calcium 8.2 mg/dL (8.4-10.2) L 06/22/21 05:09 Total Bilirubin 0.20 mg/dL (0.1-1.2) 06/21/21 21:34 AST 14 units/L (5-40) 06/21/21 21:34 ALT 12 units/L (7-56) 06/21/21 21:34 Alkaline Phosphatase 120 units/L (35-129) 06/21/21 21:34 Troponin T < 0.010 ng/mL (0.00-0.029) 06/22/21 05:09 Total Protein 6.8 g/dL (6.3-8.2) 06/21/21 21:34 Albumin 4.3 g/dL (3.9-5) 06/21/21 21:34 Albumin/Globulin Ratio 1.7 % 06/21/21 21:34 Jang/IV: Voiding Method Urinal Active Medications - Current Medications Current Medications: Generic Name Dose Route Start Last Admin Trade Name Freq PRN Reason Stop Dose Admin Acetaminophen 650 mg 06/21/21 22:23 Acetaminophen 325 Mg Tab PO Q4H PRN Pain MILD(1-3)/Fever >100.5/CANALES Aspirin 81 mg 06/23/21 10:00 Aspirin Ec 81 Mg Tab PO QDAY [facility] Atorvastatin Calcium 40 mg 06/22/21 22:00 Atorvastatin 40 Mg Tab PO QHS [facility] Carvedilol 6.25 mg 06/22/21 14:00 Carvedilol 6.25 Mg Tab PO BID [facility] Dextrose 50 ml 06/21/21 22:23 Dextrose 50% In Water (25gm) 50 Ml Syringe IV Q30MIN PRN Hypoglycemia Protocol Heparin Sodium (Porcine) 5,000 unit 06/22/21 14:30 Heparin 5,000 Unit/1 Ml Vial SUB-Q Q8HR [facility] Sodium Chloride 500 mls @ 50 mls/hr 06/22/21 14:00 Nacl 0.9% 500 Ml IV 06/22/21 23:59 DIRECT [facility] Insulin Human Lispro 0 unit 06/22/21 07:30 06/22/21 11:29 Insulin Lispro 100 Unit/Ml SUB-Q Not Given ACHS [facility] Protocol Ketorolac Tromethamine 15 mg 06/22/21 12:30 Ketorolac 30 Mg/1 Ml Inj IV 06/27/21 12:29 Q6H PRN Pain, Mild (1-3) Magnesium Hydroxide 30 ml 06/21/21 22:23 Magnesium Hydroxide (Mom) Oral Liqd Udc PO Q4H PRN Constipation Morphine Sulfate 4 mg 06/22/21 12:30 Morphine 4 Mg/1 Ml Inj IV Q6H PRN Pain , Severe (7-10) Nitroglycerin 0.4 mg 06/22/21 13:00 Nitroglycerin 0.4 Mg Tab Subl SL .Q5MIN PRN Chest Pain Ondansetron HCl 4 mg 06/21/21 22:23 Ondansetron 4 Mg/2 Ml Inj IV Q8H PRN Nausea And Vomiting Sodium Chloride 10 ml 06/22/21 10:00 06/22/21 11:29 Sodium Chloride 0.9% 10 Ml Flush Syringe IV 10 ml BID ANNA Administration Sodium Chloride 10 ml 06/21/21 22:23 Sodium Chloride 0.9% 10 Ml Flush Syringe IV PRN PRN LINE FLUSH Ticagrelor 90 mg 06/22/21 14:00 Ticagrelor 90 Mg Tab PO BID ANNA Tramadol HCl 50 mg 06/21/21 22:23 Tramadol 50 Mg Tab PO Q6H PRN Pain, Moderate (4-6) Valsartan 40 mg 06/22/21 22:00 Valsartan 40 Mg Tab PO BID ANNA
[2021-06-22] MEDS: MORPHINE 4 MG/1 ML INJ IV PRN (15:07)
[2021-06-22] MEDS: carvediloL 6.25 MG TAB PO SCH ×2 (17:49→21:59)
[2021-06-22] MEDS: HEPARIN 5,000 UNIT/1 ML VIAL SUB-Q SCH ×2 (17:49→21:59)
[2021-06-22] MEDS: TICAGRELOR 90 MG TAB PO SCH ×2 (17:49→21:59)
--- NOTE | 2021-06-22 18:02 | Electrocardiograph Report ---
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
--- NOTE | 2021-06-22 18:07 | Electrocardiograph Report ---
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
--- NOTE | 2021-06-22 18:08 | Electrocardiograph Report ---
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
[2021-06-22] MEDS ORDERED: VALSARTAN 40 MG TAB PO SCH (22:00)
[2021-06-23] MEDS: MORPHINE 4 MG/1 ML INJ IV PRN (02:55)
[2021-06-23 05:56] LABS: Blood Urea Nitrogen 8 mg/dL (9-20); Calcium 8.2 mg/dL (8.4-10.2); Hemolysis Index 3
[2021-06-23 06:08] LABS: BUN/Creatinine Ratio 13
[2021-06-23 08:50] LABS: INR 0.98 (0.87-1.13)
[2021-06-23] MEDS: INSULIN LISPRO 100 UNIT/ML SUB-Q SCH ×2 (09:15→15:55)
[2021-06-23] MEDS: HEPARIN 5,000 UNIT/1 ML VIAL SUB-Q SCH ×2 (09:15→15:55)
[2021-06-23] MEDS ORDERED: ASPIRIN EC 81 MG TAB PO SCH (10:00)
[2021-06-23] MEDS ORDERED: TICAGRELOR 90 MG TAB ONE (12:26)
[2021-06-23] MEDS: TICAGRELOR 90 MG TAB PO SCH (12:28)
[2021-06-23] MEDS ORDERED: HEPARIN/NS 5000 UNIT/500ML 1,000 ML IR ONE (12:33)
[2021-06-23] MEDS: MIDAZOLAM 2 MG/2 ML INJ ONE ×3 (13:17→13:45)
[2021-06-23] MEDS: fentaNYL 100 MCG/2 ML INJ ONE ×3 (13:18→13:45)
[2021-06-23] MEDS: LIDOCAINE (1%) 10 MG/1 ML VIAL 20 ML MDV ONE ×2 (13:18→13:41)
[2021-06-23] MEDS: HEPARIN 10,000 UNITS/10 ML VIAL ONE ×2 (13:19→13:45)
[2021-06-23] MEDS: VERAPAMIL 5 MG/2 ML INJ ONE ×2 (13:19→13:45)
[2021-06-23] MEDS: SODIUM CHLORIDE 0.9% 500 ML 500 ML ONE ×2 (13:20→13:30)
[2021-06-23] MEDS: NITROGLYCERIN SYRINGE 3 ML ONE ×2 (13:20→13:45)
--- NOTE | 2021-06-23 13:31 | Progress Note ---
Hospitalist Physical - Constitutional Vitals: Temp Pulse Resp BP Pulse Ox 97.8 F 62 18 128/85 97 06/23/21 07:58 06/23/21 10:00 06/23/21 07:58 06/23/21 07:58 06/23/21 10:00 General appearance: Present: no acute distress HEART Score - HEART Score EKG: Non-specific Age: 45-65 Risk factors: > 3 risk factors or hx of atherosclerotic disease Troponin: Troponin T < 0.010 ng/mL (0.00-0.029) 06/22/21 05:09 Troponin: < normal limit - Critical Actions Critical Actions: 4-6 pts:12-16.6% risk of adverse cardiac event. Should be admitted Results - Labs CBC & Chem 7: 06/22/21 05:09 06/23/21 04:14 Labs: Laboratory Last Values WBC 5.6 K/mm3 (4.5-11.0) 06/22/21 05:09 RBC 4.05 M/mm3 (3.65-5.03) 06/22/21 05:09 Hgb 11.8 gm/dl (11.8-15.2) 06/22/21 05:09 Hct 35.6 % (35.5-45.6) 06/22/21 05:09 MCV 88 fl (84-94) 06/22/21 05:09 MCH 29 pg (28-32) 06/22/21 05:09 MCHC 33 % (32-34) 06/22/21 05:09 RDW 15.8 % (13.2-15.2) H 06/22/21 05:09 Plt Count 216 K/mm3 (140-440) 06/22/21 05:09 Lymph % (Auto) 38.9 % (13.4-35.0) H 06/22/21 05:09 [place] % (Auto) 3.8 % (0.0-7.3) 06/22/21 05:09 Eos % (Auto) 6.4 % (0.0-4.3) H 06/22/21 05:09 Baso % (Auto) 0.7 % (0.0-1.8) 06/22/21 05:09 Lymph # (Auto) 2.2 K/mm3 (1.2-5.4) 06/22/21 05:09 [place] # (Auto) 0.2 K/mm3 (0.0-0.8) 06/22/21 05:09 Eos # (Auto) 0.4 K/mm3 (0.0-0.4) 06/22/21 05:09 Baso # (Auto) 0.0 K/mm3 (0.0-0.1) 06/22/21 05:09 Seg Neutrophils % 50.2 % (40.0-70.0) 06/22/21 05:09 Seg Neutrophils # 2.8 K/mm3 (1.8-7.7) 06/22/21 05:09 PT 14.1 Sec. (12.2-14.9) 06/23/21 08:28 INR 0.98 (0.87-1.13) 06/23/21 08:28 D-Dimer 1243.27 ng/mlDDU (0-234) H 06/21/21 21:34 Sodium 139 mmol/L (137-145) 06/23/21 04:14 Potassium 4.0 mmol/L (3.6-5.0) 06/23/21 04:14 Chloride 102.7 mmol/L (98-107) 06/23/21 04:14 Carbon Dioxide 25 mmol/L (22-30) 06/23/21 04:14 Anion Gap 15 mmol/L 06/23/21 04:14 BUN 8 mg/dL (9-20) L 06/23/21 04:14 Creatinine 0.6 mg/dL (0.8-1.3) L 06/23/21 04:14 Estimated GFR > 60 ml/min 06/23/21 04:14 BUN/Creatinine Ratio 13 % 06/23/21 04:14 Glucose 99 mg/dL (75-100) 06/23/21 04:14 POC Glucose 100 mg/dL (70-105) 06/23/21 07:57 Calcium 8.2 mg/dL (8.4-10.2) L 06/23/21 04:14 Total Bilirubin 0.20 mg/dL (0.1-1.2) 06/21/21 21:34 AST 14 units/L (5-40) 06/21/21 21:34 ALT 12 units/L (7-56) 06/21/21 21:34 Alkaline Phosphatase 120 units/L (35-129) 06/21/21 21:34 Troponin T < 0.010 ng/mL (0.00-0.029) 06/22/21 05:09 Total Protein 6.8 g/dL (6.3-8.2) 06/21/21 21:34 Albumin 4.3 g/dL (3.9-5) 06/21/21 21:34 Albumin/Globulin Ratio 1.7 % 06/21/21 21:34 Jang/IV: Voiding Method Toilet Active Medications - Current Medications Current Medications: Generic Name Dose Route Start Last Admin Trade Name Freq PRN Reason Stop Dose Admin Acetaminophen 650 mg 06/21/21 22:23 Acetaminophen 325 Mg Tab PO Q4H PRN Pain MILD(1-3)/Fever >100.5/CANALES Aspirin 81 mg 06/23/21 10:00 06/23/21 12:24 Aspirin Ec 81 Mg Tab PO 81 mg QDAY ANNA Administration Atorvastatin Calcium 40 mg 06/22/21 22:00 06/22/21 21:58 Atorvastatin 40 Mg Tab PO 40 mg QHS ANNA Administration Carvedilol 6.25 mg 06/22/21 14:00 06/22/21 21:59 Carvedilol 6.25 Mg Tab PO 6.25 mg BID ANNA Administration Dextrose 50 ml 06/21/21 22:23 Dextrose 50% In Water (25gm) 50 Ml Syringe IV Q30MIN PRN Hypoglycemia Protocol Heparin Sodium (Porcine) 5,000 unit 06/22/21 14:30 06/23/21 09:15 Heparin 5,000 Unit/1 Ml Vial SUB-Q Not Given Q8HR [facility] Insulin Human Lispro 0 unit 06/22/21 07:30 06/23/21 09:15 Insulin Lispro 100 Unit/Ml SUB-Q Not Given ACHS [facility] Protocol Ketorolac Tromethamine 15 mg 06/22/21 12:30 Ketorolac 30 Mg/1 Ml Inj IV 06/27/21 12:29 Q6H PRN Pain, Mild (1-3) Magnesium Hydroxide 30 ml 06/21/21 22:23 Magnesium Hydroxide (Mom) Oral Liqd Udc PO Q4H PRN Constipation Morphine Sulfate 4 mg 06/22/21 12:30 06/23/21 02:55 Morphine 4 Mg/1 Ml Inj IV 4 mg Q6H PRN Administration Pain , Severe (7-10) Nitroglycerin 0.4 mg 06/22/21 13:00 06/22/21 18:33 Nitroglycerin 0.4 Mg Tab Subl SL 0.4 mg .Q5MIN PRN Administration Chest Pain Ondansetron HCl 4 mg 06/21/21 22:23 Ondansetron 4 Mg/2 Ml Inj IV Q8H PRN Nausea And Vomiting Sodium Chloride 10 ml 06/22/21 10:00 06/22/21 21:59 Sodium Chloride 0.9% 10 Ml Flush Syringe IV 10 ml BID ANNA Administration Sodium Chloride 10 ml 06/21/21 22:23 Sodium Chloride 0.9% 10 Ml Flush Syringe IV PRN PRN LINE FLUSH Ticagrelor 90 mg 06/22/21 14:00 06/23/21 12:28 Ticagrelor 90 Mg Tab PO 90 mg BID ANNA Administration Tramadol HCl 50 mg 06/21/21 22:23 06/22/21 21:59 Tramadol 50 Mg Tab PO 50 mg Q6H PRN Administration Pain, Moderate (4-6) Valsartan 40 mg 06/22/21 22:00 06/22/21 21:59 Valsartan 40 Mg Tab PO 40 mg BID ANNA Administration Nutrition/Malnutrition Assess - Dietary Evaluation Nutrition/Malnutrition Findings: Nutrition Notes Start: 06/22/21 15:07 Freq: Status: Active Protocol: Document 06/22/21 15:07 AFUA (Rec: 06/22/21 15:29 AFUA [id number]) Nutrition Notes Need for Assessment generated from: MD Order,Education Initial or Follow up Brief Note Current Diagnosis Coronary Artery Disease, Diabetes,Hypertension Other Pertinent Diagnosis Chest Pain, CAD w/Stent Placement, PR. Current Diet NPO. Height 5 ft 11 in Weight 131.2 kg [place] Body Weight (kg) 78.18 BMI 40.3 Intake Prior to Admission Good Weight change and time frame Pt denies havng loss body weight [employer]. Weight Status Morbidly Obese Subjective/Other Information RD consult for Nutrition Education. Pt currently on NPO. Pt on Nasal Cannula, O2 saturation @ 98%, according to Physical Assessment History notes. Procedure planned for 06/23: Cardiac Catheterization, after findings on Lexiscan [place] abnormal stress test on 04/27 . Pt still in critical condition , not a candidate for Nutrition Education at the time, will assess feasibility on F/U. Percent of energy/protein needs met: Pt currently on NPO. Nutrition Intervention Follow-Up By: 06/29/21 Additional Comments Nutrition education will be provided on F/U, if feasible. Continue monitoring food tolerance, %PO intake of meals , and BM.
--- NOTE | 2021-06-23 14:25 | Event Note ---
Date: 06/23/21 Cardiac catheterization completed via the right radial approach, no complications. We found patent right coronary artery stent, otherwise no significant obstructive residual disease, full report dictated. Patient is stable for cardiac discharge on guideline directed medical therapy and risk factor modification.
[2021-06-23] MEDS ORDERED: traMADol 50 MG TAB PO PRN (14:27)
--- NOTE | 2021-06-23 14:29 | Cardiac Catherization Report ---
DATE OF SERVICE: 06/23/2021 CARDIAC CATHETERIZATION REASON FOR PROCEDURE: The patient is a 51-year-old man with a history of coronary artery disease and prior right coronary stent, presented with unstable angina. A thallium stress test was abnormal. He was recommended for cardiac catheterization. PROCEDURES: 1. Left heart catheterization. 2. Selective left and right coronary angiography. 3. Sedation time start 1338, end 1354. DESCRIPTION OF PROCEDURE: The patient was prepped and draped in a sterile fashion after informed consent. The right radial cath site was prepped and draped after a negative Jose's test. The right radial artery was entered using Seldinger technique followed by placement of a 6-Malaysian hydrophilic sheath. Routine radial cocktail was administered via the sheath. Selective left and right coronary angiography was performed using a #3.5 left Doreen and a #4 right Odreen. The catheters were then removed, sheath removed and hemostasis achieved using a TR band. The patient was returned to the postprocedure unit in stable condition. There were no complications. FINDINGS: HEMODYNAMICS: Ascending aortic pressure was 123/78. CORONARY ANGIOGRAPHY: Left main coronary artery was angiographically normal. Left anterior descending artery and its diagonal branches contained mild diffuse atherosclerosis, with no significant obstructive lesions noted in the system. The circumflex artery and its obtuse marginal branches were angiographically normal. The right coronary artery was a relatively small caliber, but dominant vessel. A stent was visible in the proximal to mid right coronary artery, the stented segment was widely patent. No significant restenosis was noted within the stented segment. Beyond the stented segment, there was a de clarke, 30-40% stenosis of the mid vessel. Otherwise, the rest of the right coronary system contained mild luminal irregularities. CONCLUSION: 1. Widely patent proximal right coronary artery stent. 2. Nonobstructive, de clarke mid right coronary artery stenosis as described above. 3. Otherwise, no significant residual coronary lesions identified. RECOMMENDATIONS: Risk factor modification and medical therapy. An echocardiogram will be ordered for left ventricular function and valvular function assessment. TID: [id number] RECEIPT: [id number] PHILIP RAMEY
[2021-06-23] MEDS ORDERED: SODIUM CHLORIDE 0.9% 1000 ML 1,000 ML IV SCH (14:30)
--- NOTE | 2021-06-23 15:03 | Discharge Summary ---
Providers - Providers Date of Admission: 06/21/21 22:23 Date of discharge: 06/23/21 Attending physician: JOSIE MIGUEL MD 06/21/21 Consult to Cardiac Rehabilitation [CONS] Routine Reason For Exam: Phase I 06/21/21 22:23 Consult to Cardiology [CONS] Routine Consulting Provider: FEDERICA DAUGHERTY Reason For Exam: Chest pain Consult to Dietitian/Nutrition [CONS] Routine Physician Instructions: Reason For Exam: Reason for Consult: Diet education 06/23/21 14:27 Consult to Cardiac Rehabilitation [CONS] Routine Reason For Exam: Cardiac Rehab Evaluation Hospitalization Condition: Good Disposition: 30 STILL A PATIENT Exam - Constitutional Vitals: Temp Pulse Resp BP Pulse Ox 97.8 F 62 18 128/85 97 06/23/21 07:58 06/23/21 10:00 06/23/21 07:58 06/23/21 07:58 06/23/21 10:00 Plan Care Plan Goals: Please follow-up with your lock expert and primary care doctor. There were no blockages visualized during your cardiac cath. The CT angiogram of your chest did not reveal any blood clots or any findings to explain your chest pain. Follow up with: ALONSO DE LA GARZA [Other] - 3-5 Days Prescriptions: carvediloL [Coreg] 6.25 mg PO BID 30 Days #60 tablet Valsartan [Diovan] 40 mg PO BID 30 Days #60 tablet Nitroglycerin [Nitrostat] 0.4 mg SL .Q5MIN PRN 30 Days #30 tablet PRN Reason: Chest Pain
[2021-06-23] MEDS: carvediloL 6.25 MG TAB PO SCH (16:55)
[2021-06-23 17:08] VITALS: BP 144/85
--- NOTE | 2021-06-24 17:07 | Electrocardiograph Report ---
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
== END 2021-06-23 17:25 | disposition home or self-care (01) | DRG 287 ==
LOC: ED 18:32 → 4A 22:23
PROVIDERS: ADMIT Internal Medicine Geriatric Medicine; ATTEND Student in an Organized Health Care Education/Training Program
PROC: 4A023N7 Measurement of Cardiac Sampling and Pressure, Left Heart, Percutaneous Approach (ICD-10-PCS; principal; 2021-06-23)
PROC: B2111ZZ Fluoroscopy of Multiple Coronary Arteries using Low Osmolar Contrast (ICD-10-PCS; 2021-06-23)
DX: I25.10 Atherosclerotic heart disease of native coronary artery without angina pectoris (principal); E11.9 Type 2 diabetes mellitus without complications; R07.9 Chest pain, unspecified; Z95.5 Presence of coronary angioplasty implant and graft; I10 Essential (primary) hypertension; I25.2 Old myocardial infarction
CPT/HCPCS: 36415; 71045; 71275; 78452; 80048; 80053; 82962; 84484; 85025; 85379; 85610; 93005; 93017; 93306; 93458; 99406; G0378; J1815; A9502; C1894; C8929; J1644; J2250; J2270; J2785; J3010; J7040; Q9967